=== PATIENT | male | born 1960 | race Caucasian/White ===

== ENCOUNTER 2018-04-08 22:15 | Emergency (ER) | payer OTHER ==
[~2018-04-08] VITALS: Ht 175.3 cm; Wt 93.0 kg
[2018-04-08 23:17] VITALS: BP 161/83
== END 2018-04-09 00:53 | disposition home or self-care (01) ==
LOC: ER 22:19
DX: B37.89 Other sites of candidiasis (principal); B99.8 Other infectious disease; H10.89 Other conjunctivitis; G89.29 Other chronic pain; M54.5 Low back pain; F32.9 Major depressive disorder, single episode, unspecified; F41.9 Anxiety disorder, unspecified; G47.00 Insomnia, unspecified; I10 Essential (primary) hypertension; I45.9 Conduction disorder, unspecified; Z96.661 Presence of right artificial ankle joint; Z98.890 Other specified postprocedural states; Z60.2 Problems related to living alone
CPT/HCPCS: 99283; A4606; Z7610